=== PATIENT | female | born 1955 | race Caucasian/White ===

== ENCOUNTER 2020-05-12 18:59 | Inpatient (IN) | payer MEDICARE, OTHER ==
--- NOTE | 2020-05-12 19:33 | RAD ---
Portable frontal chest radiograph: 05/12/2020 COMPARISON: None HISTORY: Low oxygen saturation Findings: There is mild increased linear interstitial density noted. No focal consolidation or alveol ar edema. Incompletely imaged cervical spine hardware present. IMPRESSION: No focal consolidation or alveolar edema.
--- NOTE | 2020-05-12 19:58 | CT ---
BRAIN CT WITHOUT IV CONTRAST: 05/12/20 HISTORY: Headache. Dizziness, weakness. No focal mass or midline shift. Mild bilateral atrophy. Extensive hyperostosis frontalis interna. IMPRESSION: No acute intracranial process. No mass or bleed. POS: RRE
[2020-05-12 20:07] LABS: #Eosinphils 0.2 thou/uL (0.0-0.7); #Lymphocytes 1.7 thou/uL (1.20-3.40); #Monocytes 0.5 thou/uL (0.11-0.59); #Neutrophils 4.6 thou/uL (1.40-6.50); %Basophils 0.7 % (0.0-1.0); %Eosinophils 3.2 % (0.0-10.0); %Lymphocytes 23.9 % (21.0-51.0); %Monocytes 7.2 % (0.0-10.0); Hemoglobin 12.5 g/dL (12.0-16.0); Mean Corpuscular Hemoglobin 28.2 pg (27.0-31.0); Mean Corpuscular Volume 88.2 fL (78.0-98.0); Mean Platelet Volume 8.9 fL (7.4-10.4); Platelet Count 218 thou/uL (130-400); RBC Distribution Width 13.7 % (11.5-14.5); Red Blood Cell (RBC) Count 4.43 mill/uL (4.20-5.40); White Blood Cell (WBC) Count 7.1 thou/uL (4.8-10.8)
[2020-05-12 20:17] LABS: INR-International Normal Ratio 1.1; Prothrombin Time 14.1 sec (12.0-14.7)
[2020-05-12 20:27] LABS: Bilirubin Negative (Negative); Blood, Urine Negative (Negative); Clarity Clear (Clear); Glucose, Urine (Dipstick) Normal (Negative); Ketone, Urine Negative (Negative); Leukocyte Negative Leu/uL (Negative); Nitrite Negative (Negative); Protein, Urine (Dipstick) 20 mg/dL (Neg-Trace); Specific Gravity, Urine 1.024 (1.002-1.036); Urobilinogen Normal mg/dL (Less than 2)
[2020-05-12 20:28] LABS: ALT (SGPT) 8 U/L (8-55); AST (SGOT) 12 U/L (5-34); Albumin 3.8 g/dL (3.4-4.8); Alkaline Phosphatase 71 U/L (40-110); Anion Gap 16 mmol/L (10-20); BUN (Urea Nitrogen) 28 mg/dL (9.8-20.1); Bilirubin, Total 0.3 mg/dL (0.2-1.2); Calc. Creatinine Clearance 0 mL/min (70-130); Calcium 8.1 mg/dL (7.8-10.44); Carbon Dioxide 19 mmol/L (23-31); Chloride 106 mmol/L (98-107); Estimated GFR-MDRD 10; Globulin 2.7 g/dL (2.4-3.5); Glucose 85 mg/dL (80-115); Potassium 4.2 mmol/L (3.5-5.1); Protein, Total 6.5 g/dL (6.0-8.3); Sodium 137 mmol/L (136-145)
[2020-05-12 20:51] LABS: CKMB 4.4 ng/mL (0-6.6)
[2020-05-12] MEDS ORDERED: Sodium Chloride 0.9% 1,000 ML IV SCH (22:00)
[2020-05-12] MEDS ORDERED: Insulin Regular 300 UNITS/3 ML VIAL SC PRN (22:03)
[2020-05-12] MEDS ORDERED: Dextrose 5% in Water 1,000 ML IV PRN (22:03)
[2020-05-12] MEDS ORDERED: Dextrose 50% Abboject 50 ML SYRINGE SLOW IVP PRN (22:03)
[2020-05-12] MEDS ORDERED: Acetaminophen 325 MG TAB ONE (22:22)
[2020-05-13 00:14] LABS: Troponin I 0.088 ng/mL (< 0.028)
--- NOTE | 2020-05-13 00:55 | HP ---
REASON FOR ADMISSION: Dizziness, slurred speech. HISTORY OF PRESENT ILLNESS: This is a 64-year-old female patient, who has been having headaches for the past 24 hours and have not slept well for several days, although she takes Valium and Seroquel. This morning, she felt dizzy and could not speak. Her family noticed slurred speech and possibly a left facial droop. EMS was called. Upon their arrival, her blood pressure was found to be very low. She was given a total of 4 L of normal saline with improvement of her symptomatology and her blood pressure. The patient is currently in our emergency room, appears to be doing well except for mentioning that she has been under a lot of stress due to her family situation. She told me that she has not been eating much today and had an episode of diarrhea today and yesterday. She adds to her symptoms that she could not see right and that is why she called her . PAST MEDICAL HISTORY: 1. Depression. 2. Anxiety. 3. Obesity. 4. Diabetes. 5. High blood pressure. 6. High cholesterol. 7. She is status post tummy tuck. 8. Chronic pain. She does have a pain pump. FAMILY HISTORY: Positive for heart disease. ALLERGIES: TO CODEINE AND SULFA AND ANOTHER ANTIBIOTIC THAT SHE DOES NOT REMEMBER THE NAME. REVIEW OF SYSTEMS: All systems reviewed except the above-mentioned dizziness found to be negative. PHYSICAL EXAMINATION: GENERAL: She is awake, alert, oriented, does not appear in distress. VITAL SIGNS: Her blood pressure is fluctuating between 93 systolic to 120 systolic. She is saturating 94% on room air. She is afebrile. HEENT: Head is nontraumatic, normocephalic. Pupils equal, reactive. Extraocular movements are intact. Nonicteric sclerae. Well injected conjunctivae. Oral mucosa normal. Nasal mucosa normal. NECK: Supple. No adenopathy. No murmur. Thyroid is not palpable. Trachea is midline. No supraclavicular adenopathy. HEART: S1 and S2 regular. No murmur. No gallops. No friction rubs. No displacement of PMI. LUNGS: Clear to auscultation bilaterally. No wheezes. No rhonchi. No crackles. Bowel sounds are positive. Nontender abdomen. No hepatosplenomegaly. No lower extremity edema. No cyanosis. NEURO: Cranial nerves 2 through 12 within normal limits. Normal motor function. Normal sensory function. Normal reflexes. LABORATORY DATA: Blood work shows WBC of 7.1, hemoglobin of 12.5, platelets of 218. Her INR is 1.1. Her sodium is 137, potassium 4.2, bicarb of 19, BUN of 28, and creatinine of 4.33. Previous creatinine 1.38. Troponin of 0.101. Urine negative for infection. Chest x-ray shows no focal consolidation. EKG shows sinus rhythm, no ST-segment or T-wave abnormality. There is an artifact due to her spinal stimulator. ASSESSMENT AND PLAN: This is a 64-year-old female patient presenting with an episode of slurred speech and left facial droop, found to be hypotensive. Her labs demonstrate worsening of her kidney disease, most likely due to dehydration. She is also on lisinopril. Neurology: The patient did have slurred speech and left facial droop. We will do a workup for possible transient ischemic attack. Most likely, her symptomatology was due to hypotension. Nevertheless, we will do an MRI of the brain and echocardiogram and carotid Doppler. Cardiac: The patient has abnormal troponin. We will monitor on telemetry. We will start her on baby aspirin. We will continue cycling her cardiac enzymes. Most likely, it is due to her renal insufficiency. We will hold her MARISSA inhibitor since her blood pressure is low. Renal system, electrolytes: The patient does have acute on chronic kidney insufficiency, could be due to dehydration. We will gently hydrate her. Recheck her labs in the morning. Do a renal ultrasound. For deep venous thrombosis prophylaxis, she will be on heparin subcutaneously. For her diabetes, she will be on an insulin sliding scale. I am awaiting for her med rec to be done, so I could reconcile it. I did discuss with her code status and she wishes to be a full code. Job ID: [id number]
[2020-05-13 01:26] VITALS: BMI 39.2
[2020-05-13] MEDS ORDERED: Sucralfate 1 GM/10 ML UDCUP PO PRN (03:27)
[2020-05-13 05:23] LABS: #Basophils 0.1 thou/uL (0.0-0.2); #Eosinphils 0.3 thou/uL (0.0-0.7); #Lymphocytes 2.2 thou/uL (1.20-3.40); #Monocytes 0.4 thou/uL (0.11-0.59); #Neutrophils 3.9 thou/uL (1.40-6.50); %Basophils 0.9 % (0.0-1.0); %Lymphocytes 31.4 % (21.0-51.0); %Monocytes 6.5 % (0.0-10.0); %Neutrophils 57.3 % (42.0-75.0); Hemoglobin 11.3 g/dL (12.0-16.0); Mean Corpuscular HGB CONC 30.3 g/dL (32.0-36.0); Mean Corpuscular Hemoglobin 26.8 pg (27.0-31.0); Mean Corpuscular Volume 88.5 fL (78.0-98.0); Mean Platelet Volume 9.3 fL (7.4-10.4); Platelet Count 215 thou/uL (130-400); RBC Distribution Width 13.8 % (11.5-14.5); Red Blood Cell (RBC) Count 4.23 mill/uL (4.20-5.40); White Blood Cell (WBC) Count 6.8 thou/uL (4.8-10.8)
[2020-05-13 05:44] LABS: Anion Gap 12 mmol/L (10-20); BUN (Urea Nitrogen) 23 mg/dL (9.8-20.1); Calc. Creatinine Clearance 41 mL/min (70-130); Carbon Dioxide 19 mmol/L (23-31); Cardiac Risk 3.1 (Less than 4.5); Chloride 113 mmol/L (98-107); Cholesterol 91 mg/dl (< 200 Desired); Estimated GFR-MDRD 20; Glucose 107 mg/dL (80-115); HDL Cholesterol 29 mg/dL (>60 Neg Risk); LDL Cholesterol, Calculated 26 mg/dL; Potassium 4.4 mmol/L (3.5-5.1); Sodium 140 mmol/L (136-145); Triglycerides 181 mg/dL (Less than 150)
[2020-05-13 07:48] VITALS: TEMP 98.7
[2020-05-13] MEDS ORDERED: Escitalopram Oxalate 20 mg Tablet PO SCH (09:00)
[2020-05-13] MEDS ORDERED: LEVOMILNACIPRAN HCL 20 MG PO SCH (09:00)
[2020-05-13] MEDS ORDERED: Aspirin 81 mg Enteric Coated Tablet PO SCH (09:00)
--- NOTE | 2020-05-13 09:24 | ULT ---
BILATERAL RENAL ULTRASOUND COMPLETE: Date: 05/13/2020 HISTORY: Renal failure. FINDINGS: Right kidney measures 11.3 x 4.2 x 4.1 cm. Left kidney measures 12.1 x 5.6 x 5.0 cm. No renal hydronephrosis. Urinary bladder is unremarkable with bilateral ureteral jets being demonstrated. No perinephric process. IMPRESSION: Unremarkable bilateral renal ultrasound. No renal hydronephrosis. POS: RRE
--- NOTE | 2020-05-13 09:25 | ULT ---
BILATERAL CAROTID DUPLEX ULTRASOUND INCLUDING COLOR AND SPECTRAL DOPPLER IMAGING: DATE: 05/13/2020 HISTORY: Slurred speech. FINDINGS: Bilateral plaque noted at the bifurcation and proximal ICA regions. PSV Right ICA: 82 cm/sec EDV: 21 cm/sec ICA/CCA Ratio: 0.7 PSV Left ICA: 86 cm/sec EDV: 29 cm/sec ICA/CCA Ratio: 0.9 Vertebral flow is antegrade. IMPRESSION: Evidence for bilateral carotid artery atherosclerotic vascular disease with some bilateral calcified plaque. No hemodynamically significant stenosis. POS: RRE
[2020-05-13] MEDS: Heparin 5,000 UNITS/ML VIAL SC SCH ×2 (09:48→14:43)
--- NOTE | 2020-05-13 11:06 | CON ---
DATE OF CONSULTATION: 05/13/2020 CONSULTING PHYSICIAN: Hospitalist Services. IMPRESSION: Probable transient ischemic attack with transient dysarthria and left facial droop. PLAN: 1. Continue aspirin and statin as you have instituted. 2. Outpatient followup of her echocardiogram. HISTORY OF PRESENT ILLNESS: Ms. Ac is a 64-year-old white female with a past history of chronic pain disorder, bladder dysfunction with a stimulator in place, diabetes, hypertension, and hyperlipidemia, who presented with left facial droop and slurred speech. The symptoms lasted approximately [address] of the brain did not show any acute changes. Her carotid ultrasound did not show any significant stenosis. She was noted to have a creatinine over 4. She has been rehydrated and is improving at this point. Her EKG showed a sinus rhythm. She has no cardiac history prior to this. She reports having similar TIA-like episode 2 years ago. She was not taking aspirin on a consistent basis. PAST MEDICAL HISTORY: As listed above. ALLERGIES: CODEINE, SULFA. FAMILY HISTORY: Heart disease. MEDICATION LIST: Reviewed. REVIEW OF SYSTEMS: Ten-system review of systems is otherwise negative. PHYSICAL EXAMINATION: GENERAL: She is an overweight, middle-aged woman, no acute distress. VITAL SIGNS: Blood pressure 95/61, pulse 100, respirations 16, and temperature 98.7. HEENT: Pupils are equal and reactive. Conjunctivae clear. Oropharynx clear. NECK: Supple. No lymphadenopathy. EXTREMITIES: No cyanosis or edema. SKIN: No rashes noted. ABDOMEN: Soft and nontender. NEUROLOGIC: She was alert and appropriate. Her speech is fluent and clear. There was no facial asymmetry. There was good lead solutions architect strength bilaterally. There was no fix or drift. Sensation was intact to touch. Toes are downgoing bilaterally. LABORATORY STUDIES: White blood cell count 7.1, hemoglobin 12.5. BUN 23, creatinine 2.43. Urine was clear. COVID test was negative. SUMMARY: A middle-aged woman with transient facial droop and dysarthria, which appear consistent with transient ischemic attack. I agree with starting a statin and aspirin. Her workup thus far is unremarkable. Given her negative cardiac history, I suspect that the echocardiogram will be unremarkable as well. Renal insufficiency is improving with fluids. I will be happy to follow up with her in the office. Job ID: [id number]
[2020-05-13] MEDS: Rizatriptan Benzoate 10 MG MLT TAB PO PRN ×2 (12:21→16:16)
[2020-05-13 12:44] VITALS: BP 110/77
[2020-05-13 13:53] LABS: Anion Gap 13 mmol/L (10-20); BUN (Urea Nitrogen) 17 mg/dL (9.8-20.1); Calc. Creatinine Clearance 66 mL/min (70-130); Calcium 8.4 mg/dL (7.8-10.44); Carbon Dioxide 18 mmol/L (23-31); Chloride 113 mmol/L (98-107); Estimated GFR-MDRD 35; Glucose 88 mg/dL (80-115); Potassium 4.6 mmol/L (3.5-5.1); Sodium 139 mmol/L (136-145)
[2020-05-13] MEDS ORDERED: Diazepam 5 MG TAB PO SCH (15:00)
--- NOTE | 2020-05-13 20:23 | DIS ---
DATE OF ADMISSION: 05/12/2020 DATE OF DISCHARGE: 05/13/2020 DISCHARGE DIAGNOSES: As of the followin. Acute kidney injury, resolved. 2. Left facial droop, slurred speech. 3. Obesity. 4. Hypertension. 5. Mildly elevated troponins, most likely secondary to demand. HOSPITAL COURSE: The patient is a 64-year-old female, who initially presented to the hospital with complaints of left-sided facial droop and slurred speech. The patient states that she goes into this spell whenever she is stressed that she stops eating and drinking. The patient at this time was found to be significantly dizzy and had a left facial droop. The patient was unable to get an MRI of the brain since she has a bladder stimulator and an intrathecal pain pump. Her symptoms completely improved. She was also given normal saline by EMS since her blood pressure was found to be very low. The patient on admission was found to have a of 4.3, which improved to 1.5. The patient was seen by Neurology and was started on aspirin and statin. I have advised her to stay away from ibuprofen. She also will hold her lisinopril until she gets her blood work, which will be Friday or Friday with her primary care doctor. Her echocardiogram indicated an EF of 60% to 65%, and everything else was significantly normal. A CT head was also normal and her carotid Dopplers and renal Dopplers. Carotid Dopplers indicated evidence of bilateral carotid artery atherosclerotic vascular disease with some bilateral calcified plaque; however, there was no percentage that was noted, it was just noted to have bilateral plaques that were noted, and also her renal Doppler that was done indicated it was unremarkable. The patient was asked to follow up with her primary. She was also educated on diet, exercise, weight loss and follow up with her primary for her maybe carotid Dopplers yearly check to make sure that there are no significant changes. The patient will be discharged home. She will follow up with her primary. She has an appointment next week. HOME MEDICATIONS: 1. Aspirin 81 mg daily. 2. Valium at night. 3. Protonix 40 mg b.i.d. 4. Pravastatin 40 mg at bedtime. 5. Seroquel 200 mg at bedtime. 6. Fetzima 20 mg daily. 7. Lamictal mg at bedtime. 8. Phenergan 25 mg q.8 hours p.r.n. 9. Lisinopril 10 mg daily. 10. Carafate 10 mg q.6 hours p.r.n. 11. Trulicity one syringe every 7 days. 12. Lexapro 20 mg daily. PHYSICAL EXAMINATION: VITAL SIGNS: Temperature of 98.7, pulse 98, respiratory rate 20, oxygen saturation 97% on room air, blood pressure 146/74. GENERAL: The patient is awake, alert, and oriented x3. Does not appear in distress. CV: S1, S2 present. No murmurs, rubs, gallops. ABDOMEN: Soft, nontender. Bowel sounds are present x2. Again, the patient will be discharged to home and she will follow up with her primary. Job ID: [id number]
[2020-05-13] MEDS ORDERED: Atorvastatin Calcium 10 MG TAB PO SCH (21:00)
[2020-05-13] MEDS ORDERED: lamoTRIgine 100 MG TAB PO SCH (21:00)
--- NOTE | 2020-05-15 05:16 | PQF ---
CLINICAL DOCUMENTATION CLARIFICATION FORM: Dear : Opal Albarado Date / Time: 05/15/2020 0513 Please exercise your independent, professional judgment in responding to the clarification form. Clinical indicators are provided on the bottom of this form for your review Please check appropriate box(es) to clarify if the following diagnosis has been ruled in our ruled out: NSTEMI [ ] Ruled in diagnosis If Rule in NSTEMI, please specify type if [ ] Type I [ x] Type II due to: (specify condition) demand___ [ ] Ruled out diagnosis [ ] Cannot rule out diagnosis [ ] Other diagnosis [ ] Unable to determine Physician Signature: Date/Time: For continuity of documentation, please document condition throughout progress notes and discharge summary. Thank You. To be completed by CDI/Coding staff for physician review: Present Clinical Indicators - Signs / Symptoms / Labs Results and Location in Medical Record [X] Troponin I 0.101; 0.088, CK-MB 4.4 Laboratory Chemistry 05/12 [X] BP 79/54, Pulse 86, Resp 16, Temp 98.5 Vital signs 05/12 [X] EKG showed Rate 67, Rhythm sinus, normal axis normal intervals no T wave inversions no ST segment changes. ED notes p11 05/12 [X] NSTEMI, DIANE, TIA ED notes p11 05/12 [X] Pt has abnormal troponin H&P p2 05/12 Dr Mcgrath [X] Mildly elevated troponin, most likely secondary to demand DS p1 05/13 Dr Albarado Present Risk Factors Results and Location in Medical Record [X] 64 year-old Female H&P p1 05/12 Dr Mcgrath [X] Obesity H&P p1 05/12 Dr Mcgrath [X] HTN H&P p1 05/12 Dr Mcgrath [X] High cholesterol H&P p1 05/12 Dr Mcgrath [X] DIANE DS p1 05/13 Dr Albarado [X] TIA DS p1 05/13 Dr Albarado Present Treatments Results and Location in Medical Record [X] Aspirin 81 mg oral JAN 07 [X] Heparin 5000 units SC TID JAN 07 [X] IVF NS 1L IVF NS 1L [X] EKG Ordered 05/12 Dr Mcgrath [X] Admit to telemetry unit Ordered 05/12 Dr Mcgrath [facility] [employer] Signature: Jaki Burrispa Rojas Phone #: [phone] Date/Time: 05/15/2020512 This is a permanent part of the Medical Record [facility]
== END 2020-05-13 16:30 | disposition home or self-care (01) | DRG 682 ==
LOC: ERS 18:59 → 2SE 21:16
PROVIDERS: ADMIT Internal Medicine; ATTEND Internal Medicine
DX: N17.9 Acute kidney failure, unspecified (principal); I21.A1 Myocardial infarction type 2; G45.9 Transient cerebral ischemic attack, unspecified; Z20.828 Contact with and (suspected) exposure to other viral communicable diseases; I95.9 Hypotension, unspecified; E66.9 Obesity, unspecified; I10 Essential (primary) hypertension; Z96.0 Presence of urogenital implants; Z96.653 Presence of artificial knee joint, bilateral; F31.9 Bipolar disorder, unspecified; F41.9 Anxiety disorder, unspecified; E78.00 Pure hypercholesterolemia, unspecified; E86.0 Dehydration; G89.29 Other chronic pain; E78.5 Hyperlipidemia, unspecified; Z68.39 Body mass index [BMI] 39.0-39.9, adult; Z88.5 Allergy status to narcotic agent; Z88.2 Allergy status to sulfonamides; Z79.899 Other long term (current) drug therapy; Z79.890 Hormone replacement therapy; Z88.1 Allergy status to other antibiotic agents; E11.9 Type 2 diabetes mellitus without complications; Z79.4 Long term (current) use of insulin
CPT/HCPCS: 36415; 36416; 51701; 70450; 71045; 76770; 80048; 80053; 80061; 81003; 82553; 83605; 84484; 85025; 85610; 85730; 87040; 87086; 93005; 93306; 93880; 94760; 96360; 96361; J1644; U0002